=== PATIENT | male | born 1955 | race Caucasian/White ===

== ENCOUNTER 2016-12-08 00:30 | Day surgery (SDC) | payer OTHER ==
[2016-12-08] VITALS (22 sets, daily range): BP systolic 136–173; BP diastolic 75–99; PULSE 59–78; RESP 14–22; O2SAT 93–96
[~2016-12-08] VITALS: Ht 198.1 cm; Wt 131.6 kg
[~2016-12-08 00:30] MED LIST: ASPI325T32 PO; CLOP75TA28 PO; LIP40 PO; LISI-571 PO; METO25TA6 PO; NITR0.4T6 SL
[2016-12-08 07:38] LABS: BASOPHILS % (AUTO) 0.3 % (0-3); EOSINOPHILS % (AUTO) 1.3 % (0-5); MONOCYTES % (AUTO) 10.2 % (4-12); Mean Corpuscular Hemoglobin 28.9 pg (27.0-35.0); Mean Corpuscular Volume 83.7 fL (81-100); Platelet Count 206 bil/L (150-400)
[2016-12-08 07:52] LABS: INR 0.99 ratio
[2016-12-08] MEDS ORDERED: BECL8.7A6 INHALATION (08:01)
[2016-12-08] MEDS ORDERED: ALBU18HF INH (08:02)
[2016-12-08] MEDS ORDERED: Nitroglycerin 50,000 mcg/250 mL D5W Premix IV ONE (08:21)
[2016-12-08] MEDS ORDERED: Heparin 10,000 Unit/1,000 mL NS Premix IV ONE (08:21)
[2016-12-08] MEDS ORDERED: Heparin 1,000 Units/500 mL NS Premix IV ONE ×2 (08:21→08:22)
[2016-12-08] MEDS ORDERED: Heparin 1,000 Unit/mL 10 mL Inj ONE (08:51)
[2016-12-08] MEDS ORDERED: fentaNYL-PF 50 mCg/mL 2 mL Inj ONE ×2 (08:51→09:51)
[2016-12-08] MEDS ORDERED: Verapamil 2.5 mg/mL 2 mL Inj ONE (09:55)
--- NOTE | 2016-12-08 10:11 | PCM.CVCATH ---
Cardiac Cath Report Date of Service Dec 08, 2016 Primary Indication Progressive angina, know prior coronary artery disease Procedure coronary angiography, left heart cath Vascular Access Right radial artery using 6 Fr slender sheath, closure with TR band. Diagnostic Catheters Left main: [place] 4.5, 5 Fr RCA: [place] 4.5, 5 Fr Procedure Details Coronary angiography details: The patient was brought to the cardiac catheterization lab in the fasting state. Patient was laid supine on the cardiac catheterization table and the right forearm was prepped and draped in the usual sterile fashion. One percent Xylocaine was infiltrated over the right radial artery. Vascular access was then achieved under ultrasound guidance. Guide wire was used to advance the catheter through the sheath and up into aortic sinuses. After coronary angiography was completed, guide wire was advanced through the catheter ahead of the tip of the catheter and the guide wire along with the catheter were pulled together out of the sheath. Medications/Fluoro Time Medications/contrast/fluoroscopy administered: see totals in the cath report Blood loss: 5 mls Findings 1) Coronary angiography: Right dominance a. Left main is normal caliber with 30% stenosis distally. b. LAD is normal caliber with proximal stent with mild in-stent restenosis followed by 90% stenosis in the mid vessel. There are three diagonal arteries, first two are medium caliber and third is small caliber. The third diagonal artery ostium has 90% stenosis and rest of the diagonal arteries have mild luminal irregularities. c. LCx is normal caliber with patent proximal stent and no angiographic in- stent restenosis. The OM branch also has a patent stent. No significant disease in the LCx and OM branch. There are collaterals to the RCA from the LCx. d. RCA is normal caliber with chronic total occlusion proximally. 2) Left Heart catheterization: a. LVEDP is borderline elevated at 16 mmHg. b. No significant transaortic gradient on catheter pull-back. Complications There were no periprocedural complications identified. Summary 1) Obstructive disease in the large caliber mid-LAD and at the ostium of small caliber 3rd diagonal artery. 2) Right coronary artery has chronic total occlusion proximally (also seen on cath 2014) with good collaterals. Recommendations Proceed with intervention to the mid-LAD by Dr. Rahman. copies to: Krishna Haynes MD, Bhrigu R MD Dec 08, 2016 10:11
--- NOTE | 2016-12-08 10:24 | DI95 ---
[address] [address] INTERVENTIONAL CARDIAC CATHETERIZATION PATIENT: DONALD BRAUN : 1955 MR#: [id number] ADMIT: 12/08/2016 JOB ID: [id number] DATE OF SERVICE: 12/08/2016 PROCEDURE: Percutaneous intervention on the left anterior descending. PROCEDURAL DETAILS: Dr. Hunter performed the diagnostic angiogram. I was asked to do an intervention. On angiographic findings, the LAD has a tight 80% lesion in its mid segment. A [place]oda 3.5 guide was used. A Runthrough wire was used to cross this lesion. It was pre-dilated with a 2.0 balloon and then stented with a 3.0 x 18 mm Xience drug-coated stent delivered at 16 atmospheres with excellent angiographic results. The patient is advised to stay on dual antiplatelet therapy for at least six months post procedure. Further follow up with Dr. Hunter.
--- NOTE | 2016-12-08 10:45 | NUR ---
Patient returned from record label intern at approx. 10:30 with a hematoma that was ascertained in the record label intern of a "golf ball size". Maciel, endoscope technician readjusted tr band, after several attempts at manipulating TR band and inflating it, determined that TR band had failed. TR band replaced and inflated with 35 cc air, Dr Rahman called to bedside and informed of the amount of air in band, right hand becoming yoandy, definite difference in color of hands, palpable radial pulse obtained. Currently( at 10:45) there is definite increased redness to right hand, patient reports numbness in right hand. I consulted with Estefanía from record label intern as I am concerned about the amount of air in the balloon and for hand ischemia if left on too long. TR band deflated by 15 cc of air with 20 cc left in band.There is immediate improvement in hand color back to baseline, continued hemostasis at radial artery site (hematoma margins were marked to aid in visualization for any expansion of hematoma), resolution of hand numbness and return of a bounding artery artery pulse.Will continue to monitor hematoma for exacerbation. Currently hematoma is soft and stable.
--- NOTE | 2016-12-08 12:56 | NUR ---
Patient voided 325cc hematuria with some dysuria. Urine dipstick confirms positive Hgb in urine.
--- NOTE | 2016-12-08 13:30 | NUR ---
Dr Rahman here to speak with patient and spouse and address the 's questions. He is also notified of patient's hematuria, no further orders. TR band has been removed, site stable, no expansion of prior hematoma.
--- NOTE | 2016-12-08 14:09 | NUR ---
Report called to Maia Harvey R.N. right radial site remains stable. Sinus rhythm, no c/o of pain.
--- NOTE | 2016-12-08 14:25 | NUR ---
Patient tx to room 2009 in stable condition.Right radial site hematoma is soft. Handoff at bedside to Aiden Harvey R.N.
[2016-12-08] MEDS ORDERED: Atropine 1 mg/10 mL (Code) Syringe IVPUSH PRN (14:55)
[2016-12-08] MEDS ORDERED: Sodium Chloride LOK Flush 10 mL Syringe IVFLUSH PRN (14:55)
[2016-12-08] MEDS ORDERED: 0.9% Sodium Chloride 400 ML (4 HRS) IV ONE (14:55)
[2016-12-08] MEDS ORDERED: 0.9% Sodium Chloride 250 ML BOLUS IV PRN (14:55)
[2016-12-08] MEDS ORDERED: Ondansetron 2 mg/mL 2 mL Inj IVPUSH PRN (14:55)
--- NOTE | 2016-12-08 15:51 | NUR ---
Case Management: Pt's requested to speak with Case Management regarding the cost of spending the night. I spoke with patient and spouse and answered all questions. Pt's is clearly stressed, she is also worried about her mother who is at home alone at this time. I asked about their plan for tomorrow and asked if they need a [employer] Priority Boarding Pass which they did want. They state they need to leave between [phone] to make the [address] tomorrow (they did say they have one err[place] to run [place] I did call Dr. Hunter and informed him of the need for early discharge and need for signature on the Priority Boarding Pass which I filled out and left on the front of the chart. Nette Elliott RN
--- NOTE | 2016-12-08 19:42 | NUR ---
Admit Report from [facility]ATT[facility] CLARK. Pt A&O. Answers questions appropriately. Denies any numbness or tingling. Independent in the room. Tele SR 60s IVCD. BP 171/98. aware. Lisinopril given PO now per new order. Night RN aware. Radial pulses equal, palpable. Slightly swollen, unchanged since report. No C/O pain or discomfort.
[2016-12-08] MEDS ORDERED: Albuterol 2.5 mg/3 mL Inhalation Solution NEB PRN (19:50)
[2016-12-08] MEDS: Fluticasone 100 mCg Inhaler INHALATION SCH (20:12)
[2016-12-09 03:27] VITALS: BP 137/81; PULSE 69; RESP 20; O2SAT 96
[2016-12-09 05:31] VITALS: PULSE 88
--- NOTE | 2016-12-09 06:10 | NUR ---
Cardiac: Tele SR IVCD. Pt denies any chest pain/ discomfort. VSS. Right wrist asymptomatic.
[2016-12-09] MEDS: Fluticasone 100 mCg Inhaler INHALATION SCH (08:03)
[2016-12-09 08:05] VITALS: BP 131/81; PULSE 66; RESP 16; O2SAT 94
--- NOTE | 2016-12-09 08:27 | PCM.DIMED ---
Discharge Instructions Date of Service Dec 09, 2016 Dates of Hospitalization Diet Discharge Diet: Heart Healthy Activity Discharge Activity: No restrictions Patient Instructions Patient Instructions - Do not lift more than 5 lbs with your right hand for the next week - Start taking Plavix (clopidogrel) again - Your lisinopril has been changed to 20 mg qhs. The prescription has been sent to the pharmacy. - Your aspirin has been changed to 81 mg. The prescription has been sent to the pharmacy. - Follow up with Dr. Hunter as scheduled. Power Mcelroy Dec 09, 2016 08:27
[2016-12-09] MEDS ORDERED: ASPI325T32 PO (08:28)
[2016-12-09] MEDS ORDERED: LISI-571 PO (08:28)
--- NOTE | 2016-12-09 09:21 | NUR ---
Discharge Pt was educated on future treatment. Scripts were faxed to pharmacy. IV was removed. Tele was removed. Pt demonstrated understanding of teaching. Pt left in a wheel chair escorted by staff member down to vehicle with no issues.
== END 2016-12-09 09:25 | disposition home or self-care (01) ==
LOC: SOUO 00:30 → PCC 14:16 → SOUO 12-09 09:25
PROVIDERS: ATTEND Internal Medicine Cardiovascular Disease
DX: I25.118 Atherosclerotic heart disease of native coronary artery with other forms of angina pectoris (principal); I25.82 Chronic total occlusion of coronary artery; Z95.5 Presence of coronary angioplasty implant and graft; Z79.02 Long term (current) use of antithrombotics/antiplatelets; I44.7 Left bundle-branch block, unspecified; E78.5 Hyperlipidemia, unspecified; J45.909 Unspecified asthma, uncomplicated; Z79.82 Long term (current) use of aspirin; E66.9 Obesity, unspecified; Z68.41 Body mass index [BMI] 40.0-44.9, adult
CPT/HCPCS: 36415; 80048; 85025; 85610; 93005; 93458; 99152; 99153; C1725; C1729; C1769; C1874; C1887; C1894; C9600; J1644; J2250; J3010; Q9967